=== PATIENT | male | born 1995 | race African-American/Black ===

== ENCOUNTER 2017-12-13 12:17 | Emergency (ER) | payer MEDICAID ==
[~2017-12-13] VITALS: Ht 172.7 cm; Wt 70.0 kg
[2017-12-13] MEDS ORDERED: ZIPRASIDONE MESYLATE 20MG/VIAL IM ONE ×2 (12:30→12:33)
[2017-12-13] MEDS ORDERED: SODIUM CHLORIDE 0.9% 1,000 ML IV ONE ×2 (12:32→12:35)
[2017-12-13 13:30] LABS: HEMATOCRIT. 44.9 % (42.0-52.0); HEMOGLOBIN. 15.7 g/dL (14.0-18.0); MEAN CORPUSCULAR HEMOGLOBIN 30.5 pg (28.0-32.0); MEAN CORPUSCULAR VOLUME 86.9 fL (80.0-94.0); MEAN PLATELET VOLUME 7.9 fl (7.4-10.4); PLATELET 315 x1000/uL (130-400); RED BLOOD CELL COUNT 5.16 mill/uL (4.7-6.1); RED CELL DISTRIBUTION WIDTH 12.7 % (11.6-14.6)
[2017-12-13 13:37] LABS: CHLORIDE 105 mEq/L (98-107)
[2017-12-13 13:42] LABS: ETHANOL BLOOD < 10 mg/dL
[2017-12-13 13:47] LABS: CREATINE KINASE 662 IU/L (39-308)
[2017-12-13 13:50] LABS: PLATELET ESTIMATE NORMAL
[2017-12-13 15:56] LABS: CLARITY URINE CLOUDY (CLEAR); COLOR URINE DARK YELLOW (YELLOW); KETONES URINE 1+ (NEGATIVE); LEUKOCYTE ESTERASE URINE NEGATIVE (NEGATIVE); NITRITE URINE NEGATIVE (NEGATIVE); OCCULT BLOOD URINE TRACE (NEGATIVE); PH URINE 5.5 (4.5-8.0); PROTEIN URINE 2+ (NEGATIVE); SPECIFIC GRAVITY URINE 1.021 (1.005-1.030)
[2017-12-13] MEDS ORDERED: POTASSIUM CHLORIDE INJ 40 MEQ in DEXT 5% WATER 250 ML IV NR (16:00)
[2017-12-13 16:06] LABS: *AMPHETAMINES SCREEN URINE PRESUMTIVE POSITIVE (NEGATIVE); *BARBITURATES SCREEN URINE NEGATIVE (NEGATIVE)
[2017-12-13 16:07] LABS: *BENZODIAZEPINES SCREEN URINE PRESUMTIVE POSITIVE (NEGATIVE); *COCAINE SCREEN URINE NEGATIVE (NEGATIVE); CANNABINOID URINE SCREEN PRESUMTIVE POSITIVE (NEGATIVE); METHADONE URINE SCREEN NEGATIVE (NEGATIVE); OPIATES URINE SCREEN NEGATIVE (NEGATIVE); PHENCYCLIDINE URINE SCREEN NEGATIVE (NEGATIVE)
[2017-12-13 18:13] VITALS: BP 107/71
== END 2017-12-13 18:20 | disposition home or self-care (01) ==
LOC: ER 12:17
DX: F19.10 Other psychoactive substance abuse, uncomplicated (principal); G93.40 Encephalopathy, unspecified; R45.1 Restlessness and agitation; F15.10 Other stimulant abuse, uncomplicated
CPT/HCPCS: 36415; 70450; 71250; 74176; 80053; 80305; 81003; 82550; 83880; 85025; 93005; 96365; 96366; 96372; 99285; G0482; J3480; J3486; J7030; Z7610; J7060

== ENCOUNTER 2018-02-06 00:27 | Emergency (ER) | payer MEDICAID ==
[~2018-02-06] VITALS: Ht 165.1 cm; Wt 68.0 kg
[2018-02-06] MEDS ORDERED: SODIUM CHLORIDE 0.9% 1,000 ML IV ONE ×2 (01:06→07:00)
[2018-02-06] MEDS ORDERED: LORAZEPAM 2MG/ML CPJ IM STA (01:06)
[2018-02-06] MEDS ORDERED: DIPHENHYDRAMINE 50MG/ML VIAL IV ONE (03:00)
[2018-02-06 03:10] LABS: BASOPHILS % 0.5 % (0.0-2.0); EOSINOPHILS % 0.3 % (0.0-5.0); HEMATOCRIT. 45.7 % (42.0-52.0); HEMOGLOBIN. 16.3 g/dL (14.0-18.0); LYMPHOCYTES % 10.1 % (20.0-50.0); MEAN CORPUSCULAR HEMOGLOBIN 31.2 pg (28.0-32.0); MEAN CORPUSCULAR VOLUME 87.2 fL (80.0-94.0); MONOCYTES % 7.3 % (2.0-8.0); NEUTROPHILS % 81.8 % (40.0-76.0); PLATELET 385 x1000/uL (130-400); RED BLOOD CELL COUNT 5.24 mill/uL (4.7-6.1)
[2018-02-06 03:45] LABS: CHLORIDE 101 mEq/L (98-107)
[2018-02-06 03:49] LABS: ETHANOL BLOOD < 10 mg/dL
[2018-02-06 05:56] LABS: CLARITY URINE CLEAR (CLEAR); COLOR URINE YELLOW (YELLOW); KETONES URINE 2+ (NEGATIVE); LEUKOCYTE ESTERASE URINE NEGATIVE (NEGATIVE); NITRITE URINE NEGATIVE (NEGATIVE); OCCULT BLOOD URINE NEGATIVE (NEGATIVE); PROTEIN URINE 1+ (NEGATIVE); SPECIFIC GRAVITY URINE 1.018 (1.005-1.030); UROBILINOGEN URINE 0.2 E.U./dL (0.2-1.0)
[2018-02-06 06:18] LABS: *AMPHETAMINES SCREEN URINE PRESUMTIVE POSITIVE (NEGATIVE); *BARBITURATES SCREEN URINE NEGATIVE (NEGATIVE); *BENZODIAZEPINES SCREEN URINE PRESUMTIVE POSITIVE (NEGATIVE); *COCAINE SCREEN URINE NEGATIVE (NEGATIVE)
[2018-02-06 06:19] LABS: METHADONE URINE SCREEN NEGATIVE (NEGATIVE); OPIATES URINE SCREEN NEGATIVE (NEGATIVE)
[2018-02-06 06:20] LABS: CANNABINOID URINE SCREEN PRESUMTIVE POSITIVE (NEGATIVE); PHENCYCLIDINE URINE SCREEN NEGATIVE (NEGATIVE)
[2018-02-06 08:42] VITALS: BP 107/68
== END 2018-02-06 08:49 | disposition home or self-care (01) ==
LOC: ER 00:27
DX: F16.10 Hallucinogen abuse, uncomplicated (principal); F15.229 Other stimulant dependence with intoxication, unspecified; E86.0 Dehydration; R41.82 Altered mental status, unspecified; Z78.1 Physical restraint status
CPT/HCPCS: 36415; 70450; 80053; 80305; 80307; 80329; 81003; 85025; 96361; 96372; 96374; 99284; G0482; J1200; J2060; J7030

== ENCOUNTER 2022-12-31 08:43 | Emergency (ER) | payer MEDICAID ==
[~2022-12-31] VITALS: Ht 167.6 cm; Wt 67.0 kg
[2022-12-31 08:49] VITALS: O2SAT 99
[2022-12-31] MEDS ORDERED: IBUPROFEN 600MG TABLET PO ONE (09:15)
[2022-12-31] MEDS ORDERED: IBUP-2029 MT (10:07)
[2022-12-31 10:41] VITALS: BP 125/78; PULSE 97; RESP 17; TEMP 98.6
== END 2022-12-31 10:42 | disposition home or self-care (01) ==
LOC: ER 08:43
DX: S52.124A Nondisplaced fracture of head of right radius, initial encounter for closed fracture (principal); F15.10 Other stimulant abuse, uncomplicated; W18.30XA Fall on same level, unspecified, initial encounter; Y93.89 Activity, other specified; Y92.89 Other specified places as the place of occurrence of the external cause; Y99.8 Other external cause status
CPT/HCPCS: 73080; 73090; 99284; Z7610; A4565